=== PATIENT | female | born 1960 ===

== ENCOUNTER 2025-01-25 06:00 | Day surgery (SDC) | payer OTHER ==
[2025-01-19 13:18] VITALS: BP 119/77
[~2025-01-25] VITALS: Ht 172.7 cm; Wt 108.4 kg
[2025-01-25] MEDS ORDERED: POVIDONE-IODINE 118 ML BOTT TOP ONE (08:15)
[2025-01-25] MEDS ORDERED: IBU600 MG PO (08:50)
== END 2025-01-25 14:50 | disposition home or self-care (01) ==
LOC: CIR.AMB 06:00
PROVIDERS: ATTEND Obstetrics & Gynecology Gynecology
DX: N84.0 Polyp of corpus uteri (principal); N95.0 Postmenopausal bleeding; Z91.011 Allergy to milk products